=== PATIENT | female | born 1950 | race Two or more races ===

== ENCOUNTER 2023-05-21 16:11 | Emergency (ER) | payer OTHER ==
[~2023-05-21] VITALS: Ht 160 cm; Wt 61.2 kg
[2023-05-21] MEDS ORDERED: NORVASC5 MG PO (16:49)
[2023-05-21] MEDS ORDERED: LOSARTAN POTASSI1 GM PO (16:50)
[2023-05-21 20:03] LABS: HEMATOCRIT 43.8 % (36.0-45.00); HEMOGLOBIN 14.8 g/dL (12.0-15.00); MEAN CELL VOLUME 85.9 fL (80.00-100.00); MEAN CORPUSCULAR HEMOGLOBIN 29.1 pg (27.00-32.0); MEAN CORPUSCULAR HGB CONC 33.8 g/dl (32.0-36.0); PLATELET COUNT 168 K/uL (150-450); RED BLOOD COUNT 5.09 M/uL (4.00-6.00); RED CELL DISTRIBUTION WIDTH 14.3 % (11.5-14.5)
[2023-05-21 20:34] LABS: CALCIUM 9.7 mg/dL (8.5-10.1); CREATININE SERUM 0.86 mg/dL (0.55-1.02); GFR 64.32; POTASSIUM 4.4 mEq/L (3.5-5.1)
[2023-05-21 20:35] LABS: INR 0.99; PARTIAL THROMBOPLASTIN TIME 26.5 SECONDS (22.0-34.0); PROTHROMBIN TIME 10.4 SECONDS (9.0-11.5)
[2023-05-21 20:56] LABS: URINE APPEARANCE Clear; URINE BILIRRUBIN Negative (NEGATIVE); URINE BLOOD Negative; URINE COLOR Yellow; URINE GLUCOSE Negative (NEGATIVE); URINE LEUKOCYTE Small; URINE NITRATE Negative; URINE PROTEIN Trace (NEGATIVE); URINE UROBILINOGEN 0.2 E.U./dl
[2023-05-21 20:58] LABS: URINE EPITHELIAL CELLS 10.6 uL (0.0-38.8); URINE RBC 3.3 uL (0.0-20.8); URINE WBC 26.1 uL (0.0-23.2)
== END 2023-05-22 07:57 | disposition designated cancer center or children's hospital (05) ==
LOC: ER 16:11
PROVIDERS: General Practice
DX: S02.40FA Zygomatic fracture, left side, initial encounter for closed fracture (principal); S52.132A Displaced fracture of neck of left radius, initial encounter for closed fracture; W18.39XA Other fall on same level, initial encounter; Y93.89 Activity, other specified; Y92.480 Sidewalk as the place of occurrence of the external cause; I10 Essential (primary) hypertension; Z20.822 Contact with and (suspected) exposure to COVID-19